=== PATIENT | female | born 1955 | race Caucasian/White ===

== ENCOUNTER → 2024-03-14 | Day surgery (SDC) | payer MEDICARE, BC ==
[2024-03-11 15:35] LABS: BASOPHILS % 0.3 % (0.0-1.0); EOSINOPHILS # (AUTO) 0.1 (0.0-0.4); EOSINOPHILS % 1.1 % (0.0-6.0); HEMATOCRIT 49.6 % (34.2-44.1); LYMPHOCYTES # (AUTO) 2.5 (1.0-3.2); LYMPHOCYTES % 27.5 % (18.0-39.1); MEAN CORPUSCULAR HEMOGLOBIN 33.3 pg (28-32); MEAN CORPUSCULAR HGB CONC 32.3 g/dL (31-35); MEAN CORPUSCULAR VOLUME 103.1 fL (81-99); MONOCYTES # (AUTO) 0.6 (0.2-0.8); MONOCYTES % 6.7 % (4.4-11.3); NEUTROPHILS # (AUTO) 5.9 (2.1-6.9); NEUTROPHILS % 64.3 % (38.7-80.0); PLATELET COUNT 200 x10e3/uL (140-360); RED BLOOD COUNT 4.81 x10e6/uL (3.6-5.1); RED CELL DISTRIBUTION WIDTH 12.5 % (11.7-14.4); WHITE BLOOD COUNT 9.13 x10e3/uL (4.8-10.8)
[~2024-03-14] MED LIST: DIOVAN160 MG PO; FENTANYL CITRATE/PF 100MCG/2 ML INJ ONE; HYOSCYAMINE SULFATE 0.5 MG/ML INJ ONE; LEVOCETIRIZINE D5 MG PO; LIDOCAINE HCL 2% LOCAL INJ 5 ML SDV VIAL INJ ONE; PROPOFOL IV EMULSION 10 MG/ML 20 ML VIAL ONE; PROPOFOL IV EMULSION 10 MG/ML 50 ML VIAL IV ONE; SYNTHROID150 MCG PO
[2024-03-14] MEDS: LACTATED RINGER'S 1,000 ML ONE (07:28)
[2024-03-14 10:30] VITALS: BP 147/78; PULSE 86; RESP 16; TEMP 97.7; O2SAT 97
== END | disposition home or self-care (01) ==
LOC: OR 07:05
PROVIDERS: ATTEND Internal Medicine Gastroenterology
DX: K22.2 Esophageal obstruction (principal); Z86.010 Personal history of colon polyps; K62.1 Rectal polyp; K29.50 Unspecified chronic gastritis without bleeding; K31.A19 Gastric intestinal metaplasia without dysplasia, unspecified site; K22.10 Ulcer of esophagus without bleeding; K22.89 Other specified disease of esophagus; K21.9 Gastro-esophageal reflux disease without esophagitis; K31.89 Other diseases of stomach and duodenum; K25.9 Gastric ulcer, unspecified as acute or chronic, without hemorrhage or perforation; K44.9 Diaphragmatic hernia without obstruction or gangrene; K57.30 Diverticulosis of large intestine without perforation or abscess without bleeding; K56.609 Unspecified intestinal obstruction, unspecified as to partial versus complete obstruction; K64.8 Other hemorrhoids; I10 Essential (primary) hypertension; J45.909 Unspecified asthma, uncomplicated; E03.9 Hypothyroidism, unspecified; F17.210 Nicotine dependence, cigarettes, uncomplicated; Z01.810 Encounter for preprocedural cardiovascular examination; Z01.812 Encounter for preprocedural laboratory examination; Z79.899 Other long term (current) drug therapy
CPT/HCPCS: 36415; 43239; 43450; 45338; 85025; 88305; 88342; 93005; J1980; J2001; J2470; J2704 ×2; J3010; J7121; 45385

== ENCOUNTER → 2024-04-15 | Outpatient (REF) | payer MEDICARE, BC ==
[~2024-04-15] MED LIST changes: -FENTANYL CITRATE/PF 100MCG/2 ML INJ ONE; -HYOSCYAMINE SULFATE 0.5 MG/ML INJ ONE; -LIDOCAINE HCL 2% LOCAL INJ 5 ML SDV VIAL INJ ONE; -PROPOFOL IV EMULSION 10 MG/ML 20 ML VIAL ONE; -PROPOFOL IV EMULSION 10 MG/ML 50 ML VIAL IV ONE
== END ==
LOC: DX 11:51
PROVIDERS: ATTEND Nurse Practitioner
DX: Z86.0100 Personal history of colon polyps, unspecified (principal)
CPT/HCPCS: 74280